=== PATIENT | female | born 1950 | race Caucasian/White ===

== ENCOUNTER 2018-08-13 07:45 | Inpatient (IN) | payer MEDICARE, OTHER ==
[2018-08-13] MEDS ORDERED: Ketorolac 30 MG/ML SDV IVPUSH ONE ×2 (09:15→14:43)
--- NOTE | 2018-08-13 09:50 | EDM.PDOC ---
ED HPI GENERAL MEDICAL PROBLEM - General Stated Complaint: PAIN Time Seen by Provider: 08/13/18 08:00 Source of Information: Reports: Patient, Family History Limitations: Reports: No Limitations - History of Present Illness INITIAL COMMENTS - FREE TEXT/NARRATIVE: c/o lower abd pain and back pain x 2d NOTE: Shopear not working for the 75 minutes of pt's ED visit, HPI and PE copied and pasted from Word document last BM 3d ago, urge to go but cannot, states she has trouble emptying her bladder as well no f/c/d, had V x 6 yesterday, little PO here, came in a w/c, usually walks without a cane or walker inc'd pain with flexion MEDS: see nursing list, reviewed, alb HFA, Combivent, Spirva ALL: Zithromax, Ancef PMH: denies CV disease, former smoker, stopped smoking last fall after a pneumonia, has 4 inhalers ROS: neg except as per HPI - Related Data Allergies Allergy/AdvReac Type Severity Reaction Status Date / Time azithromycin Allergy Rash Verified 08/13/18 14:01 [From Zithromax Z-Pritesh] cefazolin [From Ancef] Allergy Rash Verified 08/13/18 14:01 Home Meds: Home Meds Acetaminophen [Tylenol Extra Strength] 1,500 mg PO BID 08/13/18 [History] Albuterol/Ipratropium [Combivent Respimat] 1 inh INH QID PRN 08/13/18 [History] Aspirin 81 mg PO DAILY 08/13/18 [History] Calcium Carb & Citrate/Vit D3 [Calcium + D3 ER Tablet] 1 tab PO DAILY 08/13/18 [ History] Carboxymethylcellulose Sodium [Refresh Celluvisc] 1 dose EYEBOTH DAILY 08/13/18 [History] Celecoxib [CeleBREX] 200 mg PO BID 08/13/18 [History] Fexofenadine [Laura] 30 mg PO TID 08/13/18 [History] Fluticasone/Salmeterol [Advair 250-50 Diskus] 2 inh INH BID 08/13/18 [History] Nortriptyline HCl [Pamelor] 20 mg PO DAILY 08/13/18 [History] [place]-3/DHA/Epa/Fish Oil [[facility] [place] 3 500 Softgel] 1 cap PO DAILY 08/13/18 [History] Simvastatin 20 mg PO DAILY 08/13/18 [History] Tiotropium [Spiriva HandiHaler] 1 inh INH DAILY 08/13/18 [History] Vit A/Vit C/Vit E/Zinc/Copper [Preservision] 1 tab PO DAILY 08/13/18 [History] cycloSPORINE [Restasis] 1 each EYEBOTH DAILY 08/13/18 [History] ED ROS GENERAL - Review of Systems Review Of Systems: See Below Constitutional: Reports: No Symptoms. Denies: Fever HEENT: Reports: No Symptoms Respiratory: Reports: No Symptoms Cardiovascular: Reports: No Symptoms. Denies: Chest Pain Endocrine: Reports: No Symptoms GI/Abdominal: Reports: Abdominal Pain, Constipation, Nausea, Vomiting : Reports: No Symptoms Musculoskeletal: Reports: No Symptoms Skin: Reports: No Symptoms Neurological: Reports: No Symptoms Psychiatric: Reports: No Symptoms Hematologic/Lymphatic: Reports: No Symptoms Immunologic: Reports: No Symptoms ED EXAM, GENERAL - Physical Exam Exam: See Below Free Text/Narrative:: BP 104/55, HR 114 initial, then 80, RR 20, temp 98.3, PO 97%, alert, pleasant, none ill, lying supine, HEENT neg, neck supple no LNs, CV RRR, 2/6 JACQUES at LSB, quiet precordium, no tachy, chest NT, pul fair AE with scattered insp/exp wheezing, abd mild distention, good BS x 4, no dull flanks, no HSM, mild nonspecific tender across lower abd, no guard, no rebound, not localized, back no CVAT, no spine tender, no SI tender, no iliac crest tender, no spasm. Sits with some difficulty, pulls up on guardrail, wince a little. Ext no edema, mild dec'd turgor x 4. Exam Limited By: No Limitations General Appearance: Alert, WD/WN, No Apparent Distress Course - Vital Signs Last Recorded V/S: Last Vital Signs Temp 36.8 C 08/13/18 11:22 Pulse 87 08/13/18 11:22 Resp 18 08/13/18 11:22 BP 146/85 H 08/13/18 11:22 Pulse Ox 97 08/13/18 11:22 - Orders/Labs/Meds Orders: Active Orders 24 hr Category Date Time Status Abdomen 2V AP Flat Upright [CR] Stat Exams 08/13/18 09:21 Taken Abdomen Pelvis w Cont [CT] Stat Exams 08/13/18 09:57 Taken Diatrizoate [place]/Diatrizoate Na [Gastrografin 37%] Med 08/13/18 10:45 Active 30 ml PO . DIRECTED Medication Orders Diatrizoate Meglum/Diatrizoate Sod (Gastrografin 37%) 30 ml PO . DIRECTED KELLEY Last Admin: 08/13/18 11:56 Dose: 30 ml Labs: Laboratory Tests 08/13/18 08/13/18 08/13/18 Range/Units 09:05 09:05 09:05 WBC 12.4 H (4.5-12.0) X10-3/uL RBC 2.46 L (3.23-5.20) x10(6)uL Hgb 8.1 L (11.5-15.5) g/dL Hct 23.7 L (30.0-51.3) % MCV 96.3 H (80-96) fL MCH 33.0 (27.7-33.6) pg MCHC 34.3 (32.2-35.4) g/dL RDW 12.0 (11.5-15.5) % Plt Count 189 (125-369) X10(3)uL MPV 10.2 (7.4-10.4) fL Neut % (Auto) 41.9 L (46-82) % Lymph % (Auto) 51.9 H (13-37) % [place] % (Auto) 5.6 (4-12) % Eos % (Auto) 0 L (1.0-5.0) % Baso % (Auto) 1 (0-2) % Neut # (Auto) 5.2 (1.6-8.3) # Lymph # (Auto) 6.4 H (0.6-5.0) # [place] # (Auto) 0.7 (0.0-1.3) # Eos # (Auto) 0.0 (0.0-0.8) # Baso # (Auto) 0.1 (0.0-0.2) # Sodium 133 L (135-145) mmol/L Potassium 3.8 (3.5-5.3) mmol/L Chloride 98 L (100-110) mmol/L Carbon Dioxide 25 (21-32) mmol/L BUN 20 H (7-18) mg/dL Creatinine 1.0 (0.55-1.02) mg/dL Est Cr Clr Drug Dosing TNP Estimated GFR (MDRD) 55 L (>60) BUN/Creatinine Ratio 20.0 (9-20) Glucose 121 H (80-116) mg/dL Calcium 9.1 (8.6-10.2) mg/dL Total Bilirubin 0.4 (0.1-1.3) mg/dL AST 13 (5-25) IU/L ALT 14 (12-36) U/L Alkaline Phosphatase 55 L (56-112) IU/L C-Reactive Protein 17.4 H* (0.5-0.9) mg/dL Total Protein 6.7 (6.0-8.0) g/dL Albumin 2.5 L (3.2-4.6) g/dL Globulin 4.2 g/dL Albumin/Globulin Ratio 0.6 Urine Color (YELLOW) Urine Appearance (CLEAR) Urine pH (5.0-6.5) Ur Specific [place] (1.010-1.025) Urine Protein (NEGATIVE) mg/dL Urine Glucose (UA) (NEGATIVE) mg/dL Urine Ketones (NEGATIVE) mg/dL Urine Occult Blood (NEGATIVE) Urine Nitrite (NEGATIVE) Urine Bilirubin (NEGATIVE) Urine Urobilinogen (NEGATIVE) mg/dL Ur Leukocyte Esterase (NEGATIVE) Urine RBC (0) Urine WBC (0) Ur Squamous Epith Cells (NS,R,O) Urine Bacteria (NS) 08/13/18 Range/Units 10:00 WBC (4.5-12.0) X10-3/uL RBC (3.23-5.20) x10(6)uL Hgb (11.5-15.5) g/dL Hct (30.0-51.3) % MCV (80-96) fL MCH (27.7-33.6) pg MCHC (32.2-35.4) g/dL RDW (11.5-15.5) % Plt Count (125-369) X10(3)uL MPV (7.4-10.4) fL Neut % (Auto) (46-82) % Lymph % (Auto) (13-37) % [place] % (Auto) (4-12) % Eos % (Auto) (1.0-5.0) % Baso % (Auto) (0-2) % Neut # (Auto) (1.6-8.3) # Lymph # (Auto) (0.6-5.0) # [place] # (Auto) (0.0-1.3) # Eos # (Auto) (0.0-0.8) # Baso # (Auto) (0.0-0.2) # Sodium (135-145) mmol/L Potassium (3.5-5.3) mmol/L Chloride (100-110) mmol/L Carbon Dioxide (21-32) mmol/L BUN (7-18) mg/dL Creatinine (0.55-1.02) mg/dL Est Cr Clr Drug Dosing Estimated GFR (MDRD) (>60) BUN/Creatinine Ratio (9-20) Glucose (80-116) mg/dL Calcium (8.6-10.2) mg/dL Total Bilirubin (0.1-1.3) mg/dL AST (5-25) IU/L ALT (12-36) U/L Alkaline Phosphatase (56-112) IU/L C-Reactive Protein (0.5-0.9) mg/dL Total Protein (6.0-8.0) g/dL Albumin (3.2-4.6) g/dL Globulin g/dL Albumin/Globulin Ratio Urine Color Yellow (YELLOW) Urine Appearance Cloudy (CLEAR) Urine pH 5.0 (5.0-6.5) Ur Specific [place] 1.025 (1.010-1.025) Urine Protein Trace (NEGATIVE) mg/dL Urine Glucose (UA) Normal (NEGATIVE) mg/dL Urine Ketones 15 H (NEGATIVE) mg/dL Urine Occult Blood Moderate H (NEGATIVE) Urine Nitrite Negative (NEGATIVE) Urine Bilirubin Negative (NEGATIVE) Urine Urobilinogen Normal (NEGATIVE) mg/dL Ur Leukocyte Esterase Negative (NEGATIVE) Urine RBC 5-10 (0) Urine WBC 5-10 (0) Ur Squamous Epith Cells Moderate H (NS,R,O) Urine Bacteria Many H (NS) Meds: Medications Generic Name Dose Route Start Last Admin Trade Name Freq PRN Reason Stop Dose Admin Diatrizoate Meglum/Diatrizoate Sod 30 ml 08/13/18 10:45 08/13/18 11:56 Gastrografin 37% PO 30 ml . DIRECTED KELLEY Administration Discontinued Medications Generic Name Dose Route Start Last Admin Trade Name Jesus PRN Reason Stop Dose Admin Ciprofloxacin/Dextrose 400 mg/ 200 mls @ 200 mls/hr 08/13/18 09:59 08/13/18 12:33 Premix IV 08/13/18 10:58 200 mls/hr ONETIME ONE Administration Metronidazole 500 mg/ Premix 100 mls @ 100 mls/hr 08/13/18 09:59 08/13/18 11: 36 IV 08/13/18 10:58 100 mls/hr ONETIME ONE Administration Ciprofloxacin/Dextrose 400 mg/ 200 mls @ 200 mls/hr 08/13/18 10:49 08/13/18 10:52 Premix IV 08/13/18 11:48 Not Given ONETIME ONE Iopamidol 67 ml 08/13/18 10:34 08/13/18 11:56 Isovue-370 (76%) IV 08/13/18 10:35 67 ml ONETIME ONE Administration - Re-Assessments/Exams Free Text/Narrative Re-Assessment/Exam: 08/13/18 10:00 KUB 2v with stool throughout colon, no AFL, perhaps slight thickening of wall of small bowel WBC 12k, CRP 17, no fever h/o SCOT/BSO, only abd surgery will obtain CT abd/pelvis with IV and oral contrast will give cipro and Flagyl pending CT results CMP and u/a pending 08/13/18 11:49 repeat temp 97.8, pt just left for CT 08/13/18 14:[address] report shows questionable thickening of rectum, in talking directly with radiologist pt noted to have a 15 cm appendix with wall thickening and appendiceal at the tip, radiologist dx'ed acute appendicitis which is c/w with hx and PE and labs pt has declined pain meds here, had minimal discomfort onset 2d ago, inc'd discomfort today Dr Cardona notified, he requested surgery at 3 PM, pt and agree 08/13/18 14:04 pt received 1 liter NS, will give her a 2nd liter preop, poor PO intake in past 2d, urine mildly concentrated Departure - Departure Time of Disposition: 14:34 Disposition: Admitted As Inpatient 66 Condition: Fair Clinical Impression: Acute appendicitis - Discharge Information *PRESCRIPTION DRUG MONITORING PROGRAM REVIEWED*: Not Applicable *COPY OF PRESCRIPTION DRUG MONITORING REPORT IN PATIENT [place]OD[place]: Not Applicable Referrals: Kira Cuevas NP [Primary Care Provider] - - My Orders Last 24 Hours: My Active Orders 08/13/18 09:21 Abdomen 2V AP Flat Upright [CR] Stat 08/13/18 09:57 Abdomen Pelvis w Cont [CT] Stat 08/13/18 10:45 Diatrizoate [place]/Diatrizoate Na [Gastrografin 37%] 30 ml PO . DIRECTED - Assessment/Plan Last 24 Hours: My Active Orders 08/13/18 09:21 Abdomen 2V AP Flat Upright [CR] Stat 08/13/18 09:57 Abdomen Pelvis w Cont [CT] Stat 08/13/18 10:45 Diatrizoate [place]/Diatrizoate Na [Gastrografin 37%] 30 ml PO . DIRECTED
[2018-08-13] MEDS ORDERED: Ciprofloxacin in D5W 400 MG in Premix Bag 1 BAG IV ONE ×4 (09:59→10:49)
[2018-08-13] MEDS ORDERED: metroNIDAZOLE/Normal Saline 500 MG in Premix Bag 1 BAG IV ONE (09:59)
[2018-08-13] MEDS ORDERED: Iopamidol 755 Mg/ML 75 ML Bottle IV ONE (10:34)
[2018-08-13] MEDS ORDERED: Diatrizoate Meglumine/Diatrizoate Sodium 37% 30 ML Bottle PO SCH (10:45)
[2018-08-13] MEDS ORDERED: Sodium Chloride 0.9% 1,000 ML IV ONE (14:04)
[2018-08-13] MEDS ORDERED: Neostigmine Methylsulfate 10 MG/10 ML MDV IVPUSH ONE (14:43)
[2018-08-13] MEDS ORDERED: fentaNYL 100 MCG/2 ML SDV IV ONE (14:43)
[2018-08-13] MEDS ORDERED: Lactated Ringers 1,000 ML IV ONE (14:43)
[2018-08-13] MEDS ORDERED: Rocuronium 100 MG/10 ML MDV IV ONE (14:43)
[2018-08-13] MEDS ORDERED: Sugammadex Sodium 200 MG/2 ML VIAL IV ONE (14:43)
[2018-08-13] MEDS ORDERED: Ondansetron 4 MG/2 ML SDV IVPUSH ONE (14:43)
[2018-08-13] MEDS ORDERED: Propofol 200 MG/20 ML SDV IV ONE (14:43)
[2018-08-13] MEDS ORDERED: Midazolam 1 MG/ML 2 ML SDV IV ONE (14:43)
[2018-08-13] MEDS ORDERED: Succinylcholine 200 MG/10 ML MDV IV ONE (14:43)
[2018-08-13] MEDS ORDERED: Citric Acid/Sodium Citrate Solution 30 ML Cup PO ONE (14:43)
[2018-08-13] MEDS ORDERED: ePHEDrine 50 MG/ML SDV IV ONE (14:43)
[2018-08-13] MEDS ORDERED: Dexamethasone 4 MG/ML 5 ML MDV IVPUSH ONE (14:43)
[2018-08-13] MEDS ORDERED: Glycopyrrolate 0.2 MG/ML 5 ML MDV IV ONE (14:43)
[2018-08-13] MEDS ORDERED: Albuterol 8 GM Inhaler INH ONE (14:43)
[2018-08-13] MEDS ORDERED: diphenhydrAMINE 50 MG/ML SDV IVPUSH ONE (14:43)
--- NOTE | 2018-08-13 14:57 | PCM.HP ---
H&P History of Present Illness - General Date of Service: 08/13/18 Source of Information: Patient History Limitations: Reports: No Limitations - History of Present Illness Onset of Symptoms: Reports: Gradual Symptom Onset Date: 08/11/18 Duration of Symptoms: Reports: Day(s): (3) Location: Reports: Abdomen (Lower adbomen) Quality: Reports: Pressure, Sharp Severity: Moderate Worsens with: Reports: Movement Associated Symptoms: Denies: Fever/Chills, Nausea/Vomiting (some naausea yesterday) - Related Data Allergies/Adverse Reactions: Allergies Allergy/AdvReac Type Severity Reaction Status Date / Time azithromycin Allergy Rash Verified 08/13/18 14:01 [From Zithromax Z-Pritesh] cefazolin [From Ancef] Allergy Rash Verified 08/13/18 14:01 Home Medications: Home Meds Acetaminophen [Tylenol Extra Strength] 1,500 mg PO BID 08/13/18 [History] Albuterol/Ipratropium [Combivent Respimat] 1 inh INH QID PRN 08/13/18 [History] Aspirin 81 mg PO DAILY 08/13/18 [History] Calcium Carb & Citrate/Vit D3 [Calcium + D3 ER Tablet] 1 tab PO DAILY 08/13/18 [ History] Carboxymethylcellulose Sodium [Refresh Celluvisc] 1 dose EYEBOTH DAILY 08/13/18 [History] Celecoxib [CeleBREX] 200 mg PO BID 08/13/18 [History] Fexofenadine [Laura] 30 mg PO TID 08/13/18 [History] Fluticasone/Salmeterol [Advair 250-50 Diskus] 2 inh INH BID 08/13/18 [History] Nortriptyline HCl [Pamelor] 20 mg PO DAILY 08/13/18 [History] [place]-3/DHA/Epa/Fish Oil [[place] 3 500 Softgel] 1 cap PO DAILY 08/13/18 [History] Simvastatin 20 mg PO DAILY 08/13/18 [History] Tiotropium [Spiriva HandiHaler] 1 inh INH DAILY 08/13/18 [History] Vit A/Vit C/Vit E/Zinc/Copper [Preservision] 1 tab PO DAILY 08/13/18 [History] cycloSPORINE [Restasis] 1 each EYEBOTH DAILY 08/13/18 [History] Past Medical History HEENT History: Reports: Impaired Vision Cardiovascular History: Reports: High Cholesterol, Hypertension Respiratory History: Reports: Asthma, COPD [employer] History: Reports: Social & Family History - Family History Family Medical History: Noncontributory - Tobacco Use Smoking Status *Q: Never Smoker Second Hand Smoke Exposure: No - Caffeine Use Caffeine Use: Reports: Coffee - Recreational Drug Use Recreational Drug Use: No H&P Review of Systems - Review of Systems: Review Of Systems: See Below General: Reports: No Symptoms Pulmonary: Reports: No Symptoms Cardiovascular: Reports: No Symptoms Gastrointestinal: Reports: Abdominal Pain Genitourinary: Reports: No Symptoms Exam - Exam Exam: See Below - Vital Signs Vital Signs: Last Vital Signs Temp 98.3 F 08/13/18 11:22 Pulse 87 08/13/18 11:22 Resp 18 08/13/18 11:22 BP 146/85 H 08/13/18 11:22 Pulse Ox 97 08/13/18 11:22 - Exam General: Alert, Oriented Lungs: Clear to Auscultation, Normal Respiratory Effort Cardiovascular: Regular Rate, Regular Rhythm GI/Abdominal Exam: Soft, Tender (lower abdomen, right more than left) - Patient Data Lab Results Last 24 hrs: Laboratory Results - last 24 hr 08/13/18 08/13/18 08/13/18 Range/Units 09:05 09:05 09:05 WBC 12.4 H (4.5-12.0) X10-3/uL RBC 2.46 L (3.23-5.20) x10(6)uL Hgb 8.1 L (11.5-15.5) g/dL Hct 23.7 L (30.0-51.3) % MCV 96.3 H (80-96) fL MCH 33.0 (27.7-33.6) pg MCHC 34.3 (32.2-35.4) g/dL RDW 12.0 (11.5-15.5) % Plt Count 189 (125-369) X10(3)uL MPV 10.2 (7.4-10.4) fL Neut % (Auto) 41.9 L (46-82) % Lymph % (Auto) 51.9 H (13-37) % [place] % (Auto) 5.6 (4-12) % Eos % (Auto) 0 L (1.0-5.0) % Baso % (Auto) 1 (0-2) % Neut # (Auto) 5.2 (1.6-8.3) # Lymph # (Auto) 6.4 H (0.6-5.0) # [place] # (Auto) 0.7 (0.0-1.3) # Eos # (Auto) 0.0 (0.0-0.8) # Baso # (Auto) 0.1 (0.0-0.2) # Sodium 133 L (135-145) mmol/L Potassium 3.8 (3.5-5.3) mmol/L Chloride 98 L (100-110) mmol/L Carbon Dioxide 25 (21-32) mmol/L BUN 20 H (7-18) mg/dL Creatinine 1.0 (0.55-1.02) mg/dL Est Cr Clr Drug Dosing TNP Estimated GFR (MDRD) 55 L (>60) BUN/Creatinine Ratio 20.0 (9-20) Glucose 121 H (80-116) mg/dL Calcium 9.1 (8.6-10.2) mg/dL Total Bilirubin 0.4 (0.1-1.3) mg/dL AST 13 (5-25) IU/L ALT 14 (12-36) U/L Alkaline Phosphatase 55 L (56-112) IU/L C-Reactive Protein 17.4 H* (0.5-0.9) mg/dL Total Protein 6.7 (6.0-8.0) g/dL Albumin 2.5 L (3.2-4.6) g/dL Globulin 4.2 g/dL Albumin/Globulin Ratio 0.6 Urine Color (YELLOW) Urine Appearance (CLEAR) Urine pH (5.0-6.5) Ur Specific [place] (1.010-1.025) Urine Protein (NEGATIVE) mg/dL Urine Glucose (UA) (NEGATIVE) mg/dL Urine Ketones (NEGATIVE) mg/dL Urine Occult Blood (NEGATIVE) Urine Nitrite (NEGATIVE) Urine Bilirubin (NEGATIVE) Urine Urobilinogen (NEGATIVE) mg/dL Ur Leukocyte Esterase (NEGATIVE) Urine RBC (0) Urine WBC (0) Ur Squamous Epith Cells (NS,R,O) Urine Bacteria (NS) 03/03/19 Range/Units 10:00 WBC (4.5-12.0) X10-3/uL RBC (3.23-5.20) x10(6)uL Hgb (11.5-15.5) g/dL Hct (30.0-51.3) % MCV (80-96) fL MCH (27.7-33.6) pg MCHC (32.2-35.4) g/dL RDW (11.5-15.5) % Plt Count (125-369) X10(3)uL MPV (7.4-10.4) fL Neut % (Auto) (46-82) % Lymph % (Auto) (13-37) % [place] % (Auto) (4-12) % Eos % (Auto) (1.0-5.0) % Baso % (Auto) (0-2) % Neut # (Auto) (1.6-8.3) # Lymph # (Auto) (0.6-5.0) # [place] # (Auto) (0.0-1.3) # Eos # (Auto) (0.0-0.8) # Baso # (Auto) (0.0-0.2) # Sodium (135-145) mmol/L Potassium (3.5-5.3) mmol/L Chloride (100-110) mmol/L Carbon Dioxide (21-32) mmol/L BUN (7-18) mg/dL Creatinine (0.55-1.02) mg/dL Est Cr Clr Drug Dosing Estimated GFR (MDRD) (>60) BUN/Creatinine Ratio (9-20) Glucose (80-116) mg/dL Calcium (8.6-10.2) mg/dL Total Bilirubin (0.1-1.3) mg/dL AST (5-25) IU/L ALT (12-36) U/L Alkaline Phosphatase (56-112) IU/L C-Reactive Protein (0.5-0.9) mg/dL Total Protein (6.0-8.0) g/dL Albumin (3.2-4.6) g/dL Globulin g/dL Albumin/Globulin Ratio Urine Color Yellow (YELLOW) Urine Appearance Cloudy (CLEAR) Urine pH 5.0 (5.0-6.5) Ur Specific [place] 1.025 (1.010-1.025) Urine Protein Trace (NEGATIVE) mg/dL Urine Glucose (UA) Normal (NEGATIVE) mg/dL Urine Ketones 15 H (NEGATIVE) mg/dL Urine Occult Blood Moderate H (NEGATIVE) Urine Nitrite Negative (NEGATIVE) Urine Bilirubin Negative (NEGATIVE) Urine Urobilinogen Normal (NEGATIVE) mg/dL Ur Leukocyte Esterase Negative (NEGATIVE) Urine RBC 5-10 (0) Urine WBC 5-10 (0) Ur Squamous Epith Cells Moderate H (NS,R,O) Urine Bacteria Many H (NS) Result Diagrams: 08/13/18 09:05 08/13/18 09:05 Imaging Impressions Last 24 hrs: CT shows acute appendicitis Problem List Initiated/Reviewed/Updated: Yes Orders Last 24hrs: Active Orders 24 hr Category Date Time Status Abdomen 2V AP Flat Upright [CR] Stat Exams 08/13/18 09:21 Taken Abdomen Pelvis w Cont [CT] Stat Exams 08/13/18 09:57 Taken CULTURE URINE [RM] Stat Lab 08/13/18 10:05 Received Diatrizoate [place]/Diatrizoate Na [Gastrografin 37%] Med 08/13/18 10:45 Active 30 ml PO . DIRECTED Sodium Chloride 0.9% [Normal Saline] 1,000 ml Med 08/13/18 14:04 Active IV .BOLUS Medication Orders Diatrizoate Meglum/Diatrizoate Sod (Gastrografin 37%) 30 ml PO . DIRECTED [facility] Last Admin: 08/13/18 11:56 Dose: 30 ml Sodium Chloride (Normal Saline) 1,000 mls @ 999 mls/hr IV .BOLUS ONE Stop: 08/13/18 15:04 Last Admin: 08/13/18 14:20 Dose: 999 mls/hr Assessment/Plan Comment:: Will proceed with lap appy. Risks and complications of bleeding, infection, anesth, bowel injury, and need to open were discussed, consent obtained
[2018-08-13] MEDS ORDERED: Albuterol/Ipratropium 3.0-0.5 MG/3 ML Neb Soln NEB ONE (15:02)
--- NOTE | 2018-08-13 16:51 | PCM.OPNOTE ---
- General Post-Op/Procedure Note Date of Surgery/Procedure: 08/13/18 Operative Procedure(s): Lap Appy Findings: Acute Perforated Appendicitis Pre Op Diagnosis: Acute Appendicitis Post-Op Diagnosis: Same, perforated Anesthesia Technique: General ET Tube Primary Surgeon: Karthik Cardona Anesthesia Provider: Cristiane Lam Pathology: Appendix and Cultures EBL in mLs: 5 Complications: None Condition: Stable
[2018-08-13] MEDS ORDERED: Morphine 2 MG/ML Syringe IVPUSH PRN (16:54)
[2018-08-13] MEDS: Lactated Ringers 1,000 ML IV SCH (17:44)
[2018-08-13] MEDS ORDERED: Piperacillin/Tazobactam 3.375 GM in Sodium Chloride 0.9% 50 ML IV ONE (18:00)
--- NOTE | 2018-08-13 23:34 | OR ---
DATE OF OPERATION: 08/13/2018 SURGEON: Karthik Cardona MD PREOPERATIVE DIAGNOSIS: Acute appendicitis. POSTOPERATIVE DIAGNOSIS: Acute appendicitis, perforated. PROCEDURE: Laparoscopic appendectomy. ANESTHESIA: General. DESCRIPTION OF PROCEDURE: The patient was brought to the operating room, where general endotracheal anesthesia was administered. The abdomen was prepped with ChloraPrep and draped sterilely. An infraumbilical incision was made and extended into the peritoneal cavity without difficulty. The Kasey cannulator was introduced and pneumoperitoneum obtained. The patient was placed in Trendelenburg position and rotated to the left. Two 5 mm ports were placed above the pubis and mcc between the umbilicus and pubis. There was some purulent drainage along the right gutter. As I began to mobilize structures in the right lower quadrant, an acutely inflamed appendix was identified. It was perforated at its distal 3rd and had necrotic tissue and small pieces of stool present in the right pelvis. The small pieces of stool and purulent drainage were suctioned. The appendix was friable, so I decided to transect this at the base of the cecum with an Endo-PHILLIP 3.5 mm stapler. The mesoappendix was taken down with 2 applications of the Endo-PHILLIP 2.5 mm stapler. At the level of perforation, the appendix and this was removed as the first specimen. I continued to dissect further along the right pelvis and the tip of the appendix was adhesed in the pelvis with a single strand of adhesion. This was sharply transected. I was then able to mobilize the distal 3rd of the appendix and transect this with another application of the Endo-PHILLIP 2.5 mm stapler. This was also removed through an Endo pouch. The dissection continued along the appendix. She has had a total hysterectomy, so no adnexal structures were present. The right lower quadrant was thoroughly irrigated and return was clear and hemostasis assured. I then placed the patient in reverse Trendelenburg position as there was a lot of cloudy fluid in the right upper quadrant along the liver. A total of 1.5 L of irrigation was used to irrigate. Once all the return was clear, ports were removed under direct vision and remained hemostatic. Umbilical fascia was closed with [id number] #0 Vicryl. Skin was closed with #4-0 Vicryl subcuticular sutures. Benzoin and Steri-Strips were placed, and Band-Aids applied. The patient tolerated the procedure well. Estimated blood loss 5 mL. She returned to postanesthesia in stable condition. /[id number] NELLY/QUINTON
[2018-08-13] MEDS: Piperacillin/Tazobactam 3.375 GM in Sodium Chloride 0.9% 50 ML IV SCH (23:38)
[2018-08-14] MEDS: Piperacillin/Tazobactam 3.375 GM in Sodium Chloride 0.9% 50 ML IV SCH ×5 (01:30→18:11)
[2018-08-14] MEDS: Lactated Ringers 1,000 ML IV SCH ×2 (02:36→17:58)
[2018-08-14] MEDS: Acetaminophen/HYDROcodone 325-5 MG Tab PO PRN ×2 (08:44→18:14)
--- NOTE | 2018-08-14 19:35 | PCM.SURGPN ---
- General Info Date of Service: 08/14/18 POD#: 1 Functional Status: Reports: Pain Controlled, Tolerating Diet, Ambulating, Urinating, Incentive Spirometry - Review of Systems General: Reports: No Symptoms Pulmonary: Reports: No Symptoms Gastrointestinal: Reports: No Symptoms, Abdominal Pain (mild). Denies: Flatus - Patient Data Vitals - Most Recent: Last Vital Signs Temp 98.4 F 08/14/18 11:25 Pulse 78 08/14/18 11:25 Resp 20 08/14/18 11:25 BP 100/50 L 08/14/18 11:25 Pulse Ox 92 L 08/14/18 11:25 Weight - Most Recent: 59.874 kg I&O - Last 24 Hours: Intake & Output 08/14/18 08/14/18 08/14/18 06:59 14:59 22:59 Intake Total 1254 70 2060 Output Total 1200 550 Balance 54 -480 2060 Alexi Results Last 24 Hrs: Microbiology 08/13/18 16:15 Gram Stain - Final Appendix Routine Culture - Preliminary 08/13/18 10:05 Urine Culture - Preliminary Urine, Clean Catch Gram Negative Rods Med Orders - Current: Current Medications Hydrocodone Bitart/Acetaminophen ([place] 325-5 Mg) 1 tab PO Q4H PRN PRN Reason: Pain (mild 1-3) Last Admin: 08/14/18 18:14 Dose: 1 tab Diatrizoate Meglum/Diatrizoate Sod (Gastrografin 37%) 30 ml PO . DIRECTED [facility] Last Admin: 08/13/18 11:56 Dose: 30 ml Piperacillin Sod/Tazobactam (Sod 3.375 gm/ Sodium Chloride) 50 mls @ 100 mls/ hr IV Q6H [facility] Last Admin: 08/14/18 18:11 Dose: 100 mls/hr Lactated Ringer's (Ringers, Lactated) 1,000 mls @ 50 mls/hr IV ASDIRECTED [facility] Last Admin: 08/14/18 17:58 Dose: 50 mls/hr Morphine Sulfate (Morphine) 2 mg IVPUSH Q1H PRN PRN Reason: Pain (severe 7-10) Discontinued Medications Albuterol/Ipratropium (Duoneb 3.0-0.5 Mg/3 Ml) 3 ml NEB ONETIME ONE Stop: 08/13/18 15:03 Last Admin: 08/13/18 15:15 Dose: 3 ml Ciprofloxacin/Dextrose 400 mg/ (Premix) 200 mls @ 200 mls/hr IV ONETIME ONE Stop: 08/13/18 10:58 Last Admin: 08/13/18 12:33 Dose: 200 mls/hr Metronidazole 500 mg/ Premix 100 mls @ 100 mls/hr IV ONETIME ONE Stop: 08/13/18 10:58 Last Admin: 08/13/18 11:36 Dose: 100 mls/hr Ciprofloxacin/Dextrose 400 mg/ (Premix) 200 mls @ 200 mls/hr IV ONETIME ONE Stop: 08/13/18 11:48 Last Admin: 08/13/18 10:52 Dose: Not Given Sodium Chloride (Normal Saline) 1,000 mls @ 999 mls/hr IV .BOLUS ONE Stop: 08/13/18 15:04 Last Admin: 08/13/18 14:20 Dose: 999 mls/hr Lactated Ringer's (Ringers, Lactated) 1,000 mls @ 125 mls/hr IV ASDIRECTED [facility] Last Admin: 08/14/18 02:36 Dose: 125 mls/hr Piperacillin Sod/Tazobactam (Sod 3.375 gm/ Sodium Chloride) 50 mls @ 100 mls/ hr IV ONETIME ONE Stop: 08/13/18 18:29 Last Admin: 08/13/18 18:14 Dose: 100 mls/hr Iopamidol (Isovue-370 (76%)) 67 ml IV ONETIME ONE Stop: 08/13/18 10:35 Last Admin: 08/13/18 11:56 Dose: 67 ml - Exam Wound/Incisions: Healing Well General: Alert, Oriented Lungs: Clear to Auscultation GI/Abdominal Exam: Soft, Tender (mild lower) - Problem List Review Problem List Initiated/Reviewed/Updated: Yes - My Orders Last 24 Hours: Active Orders 24 hr Category Date Time Status Admission Status [Patient Status] [ADT] Routine ADT 08/14/18 10:21 Active CBC W/O DIFF,HEMOGRAM [HEME] Routine Lab 08/15/18 16:54 Ordered Lactated Ringers [Ringers, Lactated] 1,000 ml Med 08/14/18 08:00 Active IV ASDIRECTED Piperacillin/Tazobactam [Zosyn] 3.375 gm Med 08/14/18 00:00 Active Sodium Chloride 0.9% [Normal Saline] 50 ml IV Q6H Medication Orders Hydrocodone Bitart/Acetaminophen ([place] 325-5 Mg) 1 tab PO Q4H PRN PRN Reason: Pain (mild 1-3) Last Admin: 08/14/18 18:14 Dose: 1 tab Admin: 08/14/18 08:44 Dose: 1 tab Diatrizoate Meglum/Diatrizoate Sod (Gastrografin 37%) 30 ml PO . DIRECTED [facility] Last Admin: 08/13/18 11:56 Dose: 30 ml Piperacillin Sod/Tazobactam (Sod 3.375 gm/ Sodium Chloride) 50 mls @ 100 mls/ hr IV Q6H [facility] Last Admin: 08/14/18 18:11 Dose: 100 mls/hr Admin: 08/14/18 12:25 Dose: 100 mls/hr Admin: 08/14/18 05:34 Dose: Not Given Admin: 08/14/18 05:26 Dose: 100 mls/hr Admin: 08/14/18 01:30 Dose: Not Given Admin: 08/13/18 23:38 Dose: 100 mls/hr Lactated Ringer's (Ringers, Lactated) 1,000 mls @ 50 mls/hr IV ASDIRECTED [facility] Last Admin: 08/14/18 17:58 Dose: 50 mls/hr Morphine Sulfate (Morphine) 2 mg IVPUSH Q1H PRN PRN Reason: Pain (severe 7-10) - Assessment Assessment (Free Text/Narrative):: Doing well POD #1 - Plan Plan (Free Text/Narrative):: Cont as is
[2018-08-14] MEDS ORDERED: Pantoprazole 40 MG Tab.CR PO ONE (21:30)
[2018-08-15] MEDS: Piperacillin/Tazobactam 3.375 GM in Sodium Chloride 0.9% 50 ML IV SCH ×5 (06:07→18:50)
--- NOTE | 2018-08-15 08:58 | CR ---
INDICATION: Abdominal pain, no BM times 3 days. ABDOMEN: Four images of the abdomen with supine and upright projections were obtained 08/13/18 - no comparison x-ray of the abdomen with a CT of 08/13/18 noted. Again noted is a renal calculus in the area of the left renal pelvis measuring 9.4 mm. A dextroconcave rotoscoliosis of the lower lumbar spine is noted. Degenerative disk disease is suggested at L4-5, L5-S1, and L3-4. The pattern of gas and feces is nonspecific without evidence of free air or obstruction. Relatively minimal amount of stool is noted - findings do no suggest significant constipation by x-ray. No mass lesions or organomegaly could be identified. Phleboliths are noted in the pelvis, mostly on the right. IMPRESSION: 1. Nonacute abdomen. 2. Left renal calculus. 3. Rotoscoliosis lower lumbar spine with degenerative changes and disk disease in that area. [facility]
[2018-08-15] MEDS ORDERED: FEXOFENADINE 30 MG PO SCH (09:00)
[2018-08-15] MEDS ORDERED: Acetaminophen 500 MG Tab PO SCH (09:00)
[2018-08-15] MEDS ORDERED: Celecoxib 200 MG Cap PO SCH (09:00)
[2018-08-15] MEDS ORDERED: Simvastatin 20 MG Tab PO SCH (09:00)
[2018-08-15] MEDS: Tiotropium Inhaler 18 MCG Inhalation Powder Cap Kit of 5 INH SCH (09:17)
[2018-08-15] MEDS: Acetaminophen/HYDROcodone 325-5 MG Tab PO PRN (10:43)
[2018-08-15] MEDS ORDERED: Albuterol/Ipratropium 3.0-0.5 MG/3 ML Neb Soln INH PRN (12:00)
--- NOTE | 2018-08-15 12:38 | PCM.SURGPN ---
- General Info Date of Service: 08/15/18 POD#: 2 Functional Status: Reports: Pain Controlled (requiring Norno), Tolerating Diet, Ambulating, Urinating - Review of Systems General: Reports: No Symptoms. Denies: Fever Pulmonary: Reports: No Symptoms Gastrointestinal: Reports: Abdominal Pain (about the same). Denies: Flatus - Patient Data Vitals - Most Recent: Last Vital Signs Temp 97.7 F 08/15/18 00:00 Pulse 110 H 08/15/18 00:00 Resp 24 H 08/15/18 00:00 BP 118/70 08/15/18 00:00 Pulse Ox 97 08/15/18 00:00 Weight - Most Recent: 59.874 kg I&O - Last 24 Hours: Intake & Output 08/14/18 08/15/18 08/15/18 22:59 06:59 14:59 Intake Total 2379 1055 Output Total 300 940 Balance 2079 115 Lab Results Last 24 Hrs: Laboratory Results - last 24 hr 08/15/18 Range/Units 06:35 WBC 10.6 (4.5-12.0) X10-3/uL RBC 3.73 (3.23-5.20) x10(6)uL Hgb 9.7 L (11.5-15.5) g/dL Hct 29.6 L (30.0-51.3) % MCV 79.3 L (80-96) fL MCH 26.0 L (27.7-33.6) pg MCHC 32.8 (32.2-35.4) g/dL RDW 17.6 H (11.5-15.5) % Plt Count 233 (125-369) X10(3)uL Alexi Results Last 24 Hrs: Microbiology 08/13/18 10:05 Urine Culture - Final Urine, Clean Catch Escherichia Coli 08/13/18 16:15 Gram Stain - Final Appendix Routine Culture - Preliminary Med Orders - Current: Current Medications Acetaminophen (Tylenol Extra Strength) 1,500 mg PO BID [facility] Hydrocodone Bitart/Acetaminophen ([place] 325-5 Mg) 1 tab PO Q4H PRN PRN Reason: Pain (mild 1-3) Last Admin: 08/15/18 10:43 Dose: 1 tab Artificial Tears (Refresh Tears 0.5%) 0 ml EYEBOTH QID PRN PRN Reason: DRY EYES Atorvastatin Calcium (Lipitor) 20 mg PO BEDTIME [facility] Calcium Carbonate (Calcium Carbonate/Vitamin D 1250 Mg-200 Unit) 1 tab PO BID [facility] Celecoxib (Celebrex) 200 mg PO BID [facility] Last Admin: 08/15/18 09:17 Dose: 200 mg Cyclosporine (Restasis) 1 each EYEBOTH BID [facility] Diatrizoate Meglum/Diatrizoate Sod (Gastrografin 37%) 30 ml PO . DIRECTED [facility] Last Admin: 08/13/18 11:56 Dose: 30 ml Piperacillin Sod/Tazobactam (Sod 3.375 gm/ Sodium Chloride) 50 mls @ 100 mls/ hr IV Q6H [facility] Last Admin: 08/15/18 12:33 Dose: 100 mls/hr Lactated Ringer's (Ringers, Lactated) 1,000 mls @ 50 mls/hr IV ASDIRECTED [facility] Last Admin: 08/14/18 17:58 Dose: 50 mls/hr Ketorolac Tromethamine (Toradol) 30 mg IVPUSH Q6H [facility] Stop: 08/20/18 12:34 Morphine Sulfate (Morphine) 2 mg IVPUSH Q1H PRN PRN Reason: Pain (severe 7-10) Non-Formulary Medication (Albuterol/Ipratropium [Combivent Respimat]) 1 inh INH QID PRN PRN Reason: Dyspnea Non-Formulary Medication (Fluticasone/Salmeterol [Advair 250-50 Diskus]) 2 inh INH BID [facility] Nortriptyline HCl (Nortriptyline) 25 mg PO BEDTIME [facility] Pantoprazole Sodium (Protonix) 40 mg PO 1999 [facility] Tiotropium [place] (Spiriva Handihaler) 18 mcg INH DAILY [facility] Last Admin: 08/15/18 09:17 Dose: 1 puff Discontinued Medications Albuterol/Ipratropium (Duoneb 3.0-0.5 Mg/3 Ml) 3 ml NEB ONETIME ONE Stop: 08/13/18 15:03 Last Admin: 08/13/18 15:15 Dose: 3 ml Ciprofloxacin/Dextrose 400 mg/ (Premix) 200 mls @ 200 mls/hr IV ONETIME ONE Stop: 08/13/18 10:58 Last Admin: 08/13/18 12:33 Dose: 200 mls/hr Metronidazole 500 mg/ Premix 100 mls @ 100 mls/hr IV ONETIME ONE Stop: 08/13/18 10:58 Last Admin: 08/13/18 11:36 Dose: 100 mls/hr Ciprofloxacin/Dextrose 400 mg/ (Premix) 200 mls @ 200 mls/hr IV ONETIME ONE Stop: 08/13/18 11:48 Last Admin: 08/13/18 10:52 Dose: Not Given Sodium Chloride (Normal Saline) 1,000 mls @ 999 mls/hr IV .BOLUS ONE Stop: 08/13/18 15:04 Last Admin: 08/13/18 14:20 Dose: 999 mls/hr Lactated Ringer's (Ringers, Lactated) 1,000 mls @ 125 mls/hr IV ASDIRECTED [facility] Last Admin: 08/14/18 02:36 Dose: 125 mls/hr Piperacillin Sod/Tazobactam (Sod 3.375 gm/ Sodium Chloride) 50 mls @ 100 mls/ hr IV ONETIME ONE Stop: 08/13/18 18:29 Last Admin: 08/13/18 18:14 Dose: 100 mls/hr Iopamidol (Isovue-370 (76%)) 67 ml IV ONETIME ONE Stop: 08/13/18 10:35 Last Admin: 08/13/18 11:56 Dose: 67 ml Ketorolac Tromethamine (Toradol) 15 mg IVPUSH .STK-MED ONE Stop: 08/13/18 09:16 Pantoprazole Sodium (Protonix) 40 mg PO ONETIME ONE Stop: 08/14/18 21:31 Last Admin: 08/14/18 21:36 Dose: 40 mg - Exam Wound/Incisions: Healing Well General: Alert, Oriented Lungs: Clear to Auscultation, Normal Respiratory Effort GI/Abdominal Exam: Soft, Tender (mild). No: Distended - Problem List Review Problem List Initiated/Reviewed/Updated: Yes - My Orders Last 24 Hours: Active Orders 24 hr Category Date Time Status Regular Diet [DIET] Diet 08/15/18 Breakfast Active Acetaminophen [Tylenol Extra Strength] Med 08/15/18 09:00 Ordered 1,500 mg PO BID Albuterol/Ipratropium [Combivent Respimat] Med 08/15/18 08:20 Ordered 1 inh INH QID PRN Calcium Carbonate/Vitamin D3 [Calcium Carbonate/Vitamin Med 08/15/18 12:45 Active D 1250 MG-200 Unit] 1 tab PO BID Carboxymethylcellulose Sodium [Refresh Tears 0.5%] Med 08/15/18 12:45 Active 0 ml EYEBOTH QID PRN Celecoxib [CeleBREX] Med 08/15/18 09:00 Active 200 mg PO BID Fluticasone/Salmeterol [Advair 250-50 Diskus] Med 08/15/18 09:00 Ordered 2 inh INH BID Ketorolac [Toradol] Med 08/15/18 12:45 Ordered 30 mg IVPUSH Q6H Nortriptyline Med 08/15/18 21:00 Active 25 mg PO BEDTIME Pantoprazole [ProTONIX] Med 08/15/18 20:00 Active 40 mg PO 2000 Tiotropium [Spiriva HandiHaler] Med 08/15/18 09:00 Active 18 mcg INH DAILY atorvaSTATin [Lipitor] Med 08/15/18 21:00 Active 20 mg PO BEDTIME cycloSPORINE [Restasis] Med 08/15/18 12:00 Active 1 each EYEBOTH BID Medication Orders Acetaminophen (Tylenol Extra Strength) 1,500 mg PO BID [facility] Hydrocodone Bitart/Acetaminophen ([place] 325-5 Mg) 1 tab PO Q4H PRN PRN Reason: Pain (mild 1-3) Last Admin: 08/15/18 10:43 Dose: 1 tab Admin: 08/14/18 18:14 Dose: 1 tab Admin: 08/14/18 08:44 Dose: 1 tab Artificial Tears (Refresh Tears 0.5%) 0 ml EYEBOTH QID PRN PRN Reason: DRY EYES Atorvastatin Calcium (Lipitor) 20 mg PO BEDTIME [facility] Calcium Carbonate (Calcium Carbonate/Vitamin D 1250 Mg-200 Unit) 1 tab PO BID [facility] Celecoxib (Celebrex) 200 mg PO BID [facility] Last Admin: 08/15/18 09:17 Dose: 200 mg Cyclosporine (Restasis) 1 each EYEBOTH BID [facility] Diatrizoate Meglum/Diatrizoate Sod (Gastrografin 37%) 30 ml PO . DIRECTED [facility] Last Admin: 08/13/18 11:56 Dose: 30 ml Piperacillin Sod/Tazobactam (Sod 3.375 gm/ Sodium Chloride) 50 mls @ 100 mls/ hr IV Q6H [facility] Last Admin: 08/15/18 12:33 Dose: 100 mls/hr Admin: 08/15/18 06:07 Dose: 100 mls/hr Admin: 08/15/18 00:00 Dose: 100 mls/hr Admin: 08/14/18 18:11 Dose: 100 mls/hr Admin: 08/14/18 12:25 Dose: 100 mls/hr Admin: 08/14/18 05:34 Dose: Not Given Admin: 08/14/18 05:26 Dose: 100 mls/hr Admin: 08/14/18 01:30 Dose: Not Given Admin: 08/13/18 23:38 Dose: 100 mls/hr Lactated Ringer's (Ringers, Lactated) 1,000 mls @ 50 mls/hr IV ASDIRECTED [facility] Last Admin: 08/14/18 17:58 Dose: 50 mls/hr Ketorolac Tromethamine (Toradol) 30 mg IVPUSH Q6H [facility] Stop: 08/20/18 12:34 Morphine Sulfate (Morphine) 2 mg IVPUSH Q1H PRN PRN Reason: Pain (severe 7-10) Non-Formulary Medication (Albuterol/Ipratropium [Combivent Respimat]) 1 inh INH QID PRN PRN Reason: Dyspnea Non-Formulary Medication (Fluticasone/Salmeterol [Advair 250-50 Diskus]) 2 inh INH BID [facility] Nortriptyline HCl (Nortriptyline) 25 mg PO BEDTIME [facility] Pantoprazole Sodium (Protonix) 40 mg PO 2000 [facility] Tiotropium [place] (Spiriva Handihaler) 18 mcg INH DAILY [facility] Last Admin: 08/15/18 09:17 Dose: 1 puff - Assessment Assessment (Free Text/Narrative):: Doing well Culture shows E coli - Plan Plan (Free Text/Narrative):: Cont as is, adv diet Add Toradol for pain
[2018-08-15] MEDS ORDERED: Carboxymethylcellulose Sodium 0.5% Ophth Soln 15 ML Bottle EYEBOTH PRN (12:45)
[2018-08-15] MEDS: Formoterol/Mometasone 200-5 MCG 8.8 GM Inhaler IH SCH ×2 (13:28→21:03)
[2018-08-15] MEDS: cycloSPORINE Ophth Drops U/D Box of 30 EYEBOTH SCH ×2 (13:29→21:05)
[2018-08-15] MEDS: Ketorolac 30 MG/ML SDV IVPUSH SCH ×2 (13:29→19:27)
[2018-08-15] MEDS: Calcium Carbonate/Vitamin D3 1250 MG-200 Unit Tab PO SCH ×2 (13:29→21:04)
[2018-08-15] MEDS: Lactated Ringers 1,000 ML IV SCH (19:30)
[2018-08-15] MEDS ORDERED: Pantoprazole 40 MG Tab.CR PO SCH (20:00)
[2018-08-15] MEDS ORDERED: Nortriptyline 25 MG Cap PO SCH (21:00)
[2018-08-15] MEDS ORDERED: atorvaSTATin 20 MG Tab PO SCH (21:00)
[2018-08-16] MEDS: Piperacillin/Tazobactam 3.375 GM in Sodium Chloride 0.9% 50 ML IV SCH ×3 (00:09→11:50)
[2018-08-16] MEDS: Ketorolac 30 MG/ML SDV IVPUSH SCH ×3 (01:12→12:39)
[2018-08-16] MEDS: Calcium Carbonate/Vitamin D3 1250 MG-200 Unit Tab PO SCH (08:59)
[2018-08-16] MEDS: Formoterol/Mometasone 200-5 MCG 8.8 GM Inhaler IH SCH (08:59)
[2018-08-16] MEDS: cycloSPORINE Ophth Drops U/D Box of 30 EYEBOTH SCH (09:01)
[2018-08-16] MEDS: Tiotropium Inhaler 18 MCG Inhalation Powder Cap Kit of 5 INH SCH (09:02)
--- NOTE | 2018-08-16 11:35 | PCM.DCSUM1 ---
Discharge Summary - Hospital Course Free Text/Narrative:: Patient underwent Lap Appy for freforated appendicitis. Post op did well. Kept on IV Zosyn. Has been afebrile and WBC is normal. Is tolerating po well Diagnosis: Stroke: No - Discharge Data Discharge Date: 08/16/18 Discharge Disposition: Home, Self-Care 01 Condition: Stable - Patient Summary/Data Operative Procedure(s) Performed: Lap Appy Complications: none Recommended Follow-up Testing/Procedures: f/u with Dr Dulce Lobo 08/22/18 - Patient Instructions Diet: Usual Diet as Tolerated Activity: No Lifting Over 20 Pounds (for 2 weeks) Showering/Bathing: May Shower Wound/Incision Care: Keep Operative Site/Wound Site Clean and Dry - Discharge Plan *PRESCRIPTION DRUG MONITORING PROGRAM REVIEWED*: Not Applicable *COPY OF PRESCRIPTION DRUG MONITORING REPORT IN PATIENT [place]: Not Applicable Home Medications: Home Meds Albuterol/Ipratropium [Combivent Respimat] 1 inh INH QID PRN 08/13/18 [History] Aspirin 81 mg PO DAILY 08/13/18 [History] Calcium Carb & Citrate/Vit D3 [Calcium + D3 ER Tablet] 1 tab PO BID 08/13/18 [ History] Carboxymethylcellulose Sodium [Refresh Celluvisc] 1 dose EYEBOTH QID PRN [History] Celecoxib [CeleBREX] 200 mg PO BID 08/13/18 [History] Fluticasone/Salmeterol [Advair 250-50 Diskus] 1 inh INH BID 08/13/18 [History] [place]-3/DHA/Epa/Fish Oil [[place] 3 500 Softgel] 1 cap PO BID 08/13/18 [History] Tiotropium [Spiriva HandiHaler] 18 mcg INH DAILY 08/13/18 [History] Vit A/Vit C/Vit E/Zinc/Copper [Preservision] 1 tab PO BID 08/13/18 [History] cycloSPORINE [Restasis] 1 each EYEBOTH BID 08/13/18 [History] Acetaminophen [Tylenol Arthritis] 1,950 mg PO BID 08/15/18 [History] Bimatoprost [Lumigan 0.01% Ophth Soln] 1 drop EYEBOTH BEDTIME 08/15/18 [History] Estrogens, Conjugated [Premarin] 0.625 mg PO DAILY 08/15/18 [History] Hypromellose [Genteal Mild] 1 drop EYEBOTH BEDTIME 08/15/18 [History] Nortriptyline 25 mg PO BEDTIME 08/15/18 [History] RABEprazole Sodium [Aciphex] 20 mg PO BID 08/15/18 [History] Valsartan 80 mg PO DAILY 08/15/18 [History] atorvaSTATin Calcium [Lipitor] 20 mg PO BEDTIME 08/15/18 [History] diphenhydrAMINE [Benadryl] 25 mg PO BID 08/15/18 [History] Forms: ED Department Discharge Referrals: Kira Cuevas [employer] [Primary Care Provider] - - Discharge Summary/Plan Comment DC Time >30 min.: No - Patient Data Vitals - Most Recent: Last Vital Signs Temp 97.5 F 08/16/18 09:10 Pulse 96 08/16/18 09:10 Resp 18 08/16/18 09:10 BP 117/76 08/16/18 09:10 Pulse Ox 95 08/16/18 09:10 Weight - Most Recent: 59.874 kg I&O - Last 24 hours: Intake & Output 08/15/18 08/16/18 08/16/18 22:59 06:59 14:59 Intake Total 461 400 Balance 461 400 [facility] Results - Last 24 hrs: Microbiology 08/13/18 10:05 Urine Culture - Final Urine, Clean Catch Escherichia Coli 08/13/18 16:15 Gram Stain - Final Appendix Routine Culture - Preliminary Med Orders - Current: Current Medications Hydrocodone Bitart/Acetaminophen ([place] 325-5 Mg) 1 tab PO Q4H PRN PRN Reason: Pain (mild 1-3) Last Admin: 08/15/18 10:43 Dose: 1 tab Albuterol/Ipratropium (Duoneb 3.0-0.5 Mg/3 Ml) 3 ml INH QID PRN PRN Reason: DYSPNEA Artificial Tears (Refresh Tears 0.5%) 0 ml EYEBOTH QID PRN PRN Reason: DRY EYES Atorvastatin Calcium (Lipitor) 20 mg PO BEDTIME [facility] Calcium Carbonate (Calcium Carbonate/Vitamin D 1250 Mg-200 Unit) 1 tab PO BID [facility] Last Admin: 08/16/18 08:59 Dose: 1 tab Cyclosporine (Restasis) 1 each EYEBOTH BID [facility] Last Admin: 08/16/18 09:01 Dose: 1 drop Diatrizoate Meglum/Diatrizoate Sod (Gastrografin 37%) 30 ml PO . DIRECTED [facility] Last Admin: 08/13/18 11:56 Dose: 30 ml Piperacillin Sod/Tazobactam (Sod 3.375 gm/ Sodium Chloride) 50 mls @ 100 mls/ hr IV Q6H [facility] Last Admin: 08/16/18 08:06 Dose: 100 mls/hr Lactated Ringer's (Ringers, Lactated) 1,000 mls @ 50 mls/hr IV ASDIRECTED [facility] Last Admin: 08/15/18 19:30 Dose: 50 mls/hr Ketorolac Tromethamine (Toradol) 30 mg IVPUSH Q6H [facility] Stop: 08/20/18 12:34 Last Admin: 08/16/18 06:48 Dose: 30 mg Mometasone Furoate/Formoterol Fumar (Dulera 200-5 Mcg) 2 puff IH BID [facility] Last Admin: 08/16/18 08:59 Dose: 2 puff Morphine Sulfate (Morphine) 2 mg IVPUSH Q1H PRN PRN Reason: Pain (severe 7-10) Nortriptyline HCl (Nortriptyline) 25 mg PO BEDTIME [facility] Last Admin: 08/15/18 21:05 Dose: 25 mg Pantoprazole Sodium (Protonix) 40 mg PO 1999 [facility] Last Admin: 08/15/18 19:28 Dose: 40 mg Tiotropium [place] (Spiriva Handihaler) 18 mcg INH DAILY [facility] Last Admin: 08/16/18 09:02 Dose: 1 puff Discontinued Medications Albuterol/Ipratropium (Duoneb 3.0-0.5 Mg/3 Ml) 3 ml NEB ONETIME ONE Stop: 08/13/18 15:03 Last Admin: 08/13/18 15:15 Dose: 3 ml Celecoxib (Celebrex) 200 mg PO BID [facility] Last Admin: 08/15/18 09:17 Dose: 200 mg Ciprofloxacin/Dextrose 400 mg/ (Premix) 200 mls @ 200 mls/hr IV ONETIME ONE Stop: 08/13/18 10:58 Last Admin: 08/13/18 12:33 Dose: 200 mls/hr Metronidazole 500 mg/ Premix 100 mls @ 100 mls/hr IV ONETIME ONE Stop: 08/13/18 10:58 Last Admin: 08/13/18 11:36 Dose: 100 mls/hr Ciprofloxacin/Dextrose 400 mg/ (Premix) 200 mls @ 200 mls/hr IV ONETIME ONE Stop: 08/13/18 11:48 Last Admin: 08/13/18 10:52 Dose: Not Given Sodium Chloride (Normal Saline) 1,000 mls @ 999 mls/hr IV .BOLUS ONE Stop: 08/13/18 15:04 Last Admin: 08/13/18 14:20 Dose: 999 mls/hr Lactated Ringer's (Ringers, Lactated) 1,000 mls @ 125 mls/hr IV ASDIRECTED [facility] Last Admin: 08/14/18 02:36 Dose: 125 mls/hr Piperacillin Sod/Tazobactam (Sod 3.375 gm/ Sodium Chloride) 50 mls @ 100 mls/ hr IV ONETIME ONE Stop: 08/13/18 18:29 Last Admin: 08/13/18 18:14 Dose: 100 mls/hr Iopamidol (Isovue-370 (76%)) 67 ml IV ONETIME ONE Stop: 08/13/18 10:35 Last Admin: 08/13/18 11:56 Dose: 67 ml Ketorolac Tromethamine (Toradol) 15 mg IVPUSH .STK-MED ONE Stop: 08/13/18 09:16 Pantoprazole Sodium (Protonix) 40 mg PO ONETIME ONE Stop: 08/14/18 21:31 Last Admin: 08/14/18 21:36 Dose: 40 mg
--- NOTE | 2018-08-16 11:36 | PCM.SURGPN ---
- General Info Date of Service: 08/16/18 POD#: 3 Functional Status: Reports: Pain Controlled, Tolerating Diet, Ambulating - Review of Systems General: Reports: No Symptoms Pulmonary: Reports: No Symptoms Gastrointestinal: Reports: No Symptoms - Patient Data Vitals - Most Recent: Last Vital Signs Temp 97.5 F 08/16/18 09:10 Pulse 96 08/16/18 09:10 Resp 18 08/16/18 09:10 BP 117/76 08/16/18 09:10 Pulse Ox 95 08/16/18 09:10 Weight - Most Recent: 59.874 kg I&O - Last 24 Hours: Intake & Output 08/15/18 08/16/18 08/16/18 22:59 06:59 14:59 Intake Total 461 400 Balance 461 400 Alexi Results Last 24 Hrs: Microbiology 08/13/18 10:05 Urine Culture - Final Urine, Clean Catch Escherichia Coli 08/13/18 16:15 Gram Stain - Final Appendix Routine Culture - Preliminary Med Orders - Current: Current Medications Hydrocodone Bitart/Acetaminophen ([place] 325-5 Mg) 1 tab PO Q4H PRN PRN Reason: Pain (mild 1-3) Last Admin: 08/15/18 10:43 Dose: 1 tab Albuterol/Ipratropium (Duoneb 3.0-0.5 Mg/3 Ml) 3 ml INH QID PRN PRN Reason: DYSPNEA Artificial Tears (Refresh Tears 0.5%) 0 ml EYEBOTH QID PRN PRN Reason: DRY EYES Atorvastatin Calcium (Lipitor) 20 mg PO BEDTIME [facility] Calcium Carbonate (Calcium Carbonate/Vitamin D 1250 Mg-200 Unit) 1 tab PO BID [facility] Last Admin: 08/16/18 08:59 Dose: 1 tab Cyclosporine (Restasis) 1 each EYEBOTH BID [facility] Last Admin: 08/16/18 09:01 Dose: 1 drop Diatrizoate Meglum/Diatrizoate Sod (Gastrografin 37%) 30 ml PO . DIRECTED [facility] Last Admin: 08/13/18 11:56 Dose: 30 ml Piperacillin Sod/Tazobactam (Sod 3.375 gm/ Sodium Chloride) 50 mls @ 100 mls/ hr IV Q6H [facility] Last Admin: 08/16/18 08:06 Dose: 100 mls/hr Lactated Ringer's (Ringers, Lactated) 1,000 mls @ 50 mls/hr IV ASDIRECTED [facility] Last Admin: 08/15/18 19:30 Dose: 50 mls/hr Ketorolac Tromethamine (Toradol) 30 mg IVPUSH Q6H [facility] Stop: 08/20/18 12:34 Last Admin: 08/16/18 06:48 Dose: 30 mg Mometasone Furoate/Formoterol Fumar (Dulera 200-5 Mcg) 2 puff IH BID [facility] Last Admin: 08/16/18 08:59 Dose: 2 puff Morphine Sulfate (Morphine) 2 mg IVPUSH Q1H PRN PRN Reason: Pain (severe 7-10) Nortriptyline HCl (Nortriptyline) 25 mg PO BEDTIME [facility] Last Admin: 08/15/18 21:05 Dose: 25 mg Pantoprazole Sodium (Protonix) 40 mg PO 1999 [facility] Last Admin: 08/15/18 19:28 Dose: 40 mg Tiotropium Murdock (Spiriva Handihaler) 18 mcg INH DAILY [facility] Last Admin: 08/16/18 09:02 Dose: 1 puff Discontinued Medications Albuterol/Ipratropium (Duoneb 3.0-0.5 Mg/3 Ml) 3 ml NEB ONETIME ONE Stop: 08/13/18 15:03 Last Admin: 08/13/18 15:15 Dose: 3 ml Celecoxib (Celebrex) 200 mg PO BID [facility] Last Admin: 08/15/18 09:17 Dose: 200 mg Ciprofloxacin/Dextrose 400 mg/ (Premix) 200 mls @ 200 mls/hr IV ONETIME ONE Stop: 08/13/18 10:58 Last Admin: 08/13/18 12:33 Dose: 200 mls/hr Metronidazole 500 mg/ Premix 100 mls @ 100 mls/hr IV ONETIME ONE Stop: 08/13/18 10:58 Last Admin: 08/13/18 11:36 Dose: 100 mls/hr Ciprofloxacin/Dextrose 400 mg/ (Premix) 200 mls @ 200 mls/hr IV ONETIME ONE Stop: 08/13/18 11:48 Last Admin: 08/13/18 10:52 Dose: Not Given Sodium Chloride (Normal Saline) 1,000 mls @ 999 mls/hr IV .BOLUS ONE Stop: 08/13/18 15:04 Last Admin: 08/13/18 14:20 Dose: 999 mls/hr Lactated Ringer's (Ringers, Lactated) 1,000 mls @ 125 mls/hr IV ASDIRECTED [facility] Last Admin: 08/14/18 02:36 Dose: 125 mls/hr Piperacillin Sod/Tazobactam (Sod 3.375 gm/ Sodium Chloride) 50 mls @ 100 mls/ hr IV ONETIME ONE Stop: 08/13/18 18:29 Last Admin: 08/13/18 18:14 Dose: 100 mls/hr Iopamidol (Isovue-370 (76%)) 67 ml IV ONETIME ONE Stop: 08/13/18 10:35 Last Admin: 08/13/18 11:56 Dose: 67 ml Ketorolac Tromethamine (Toradol) 15 mg IVPUSH .STK-MED ONE Stop: 08/13/18 09:16 Pantoprazole Sodium (Protonix) 40 mg PO ONETIME ONE Stop: 08/14/18 21:31 Last Admin: 08/14/18 21:36 Dose: 40 mg - Exam Wound/Incisions: Healing Well, Dressing Dry and Intact GI/Abdominal Exam: Soft, Non-Tender, No Distention - Problem List Review Problem List Initiated/Reviewed/Updated: Yes - My Orders Last 24 Hours: Active Orders 24 hr Category Date Time Status Albuterol/Ipratropium [DuoNeb 3.0-0.5 MG/3 ML] Med 08/15/18 12:00 Active 3 ml INH QID PRN Calcium Carbonate/Vitamin D3 [Calcium Carbonate/Vitamin Med 08/15/18 12:45 Active D 1250 MG-200 Unit] 1 tab PO BID Carboxymethylcellulose Sodium [Refresh Tears 0.5%] Med 08/15/18 12:45 Active 0 ml EYEBOTH QID PRN Ketorolac [Toradol] Med 08/15/18 12:45 Active 30 mg IVPUSH Q6H Mometasone/Formoterol [Dulera 200-5 MCG] Med 08/15/18 12:45 Active 2 puff IH BID Nortriptyline Med 08/15/18 21:00 Active 25 mg PO BEDTIME Pantoprazole [ProTONIX] Med 08/15/18 20:00 Active 40 mg PO 2000 atorvaSTATin [Lipitor] Med 08/15/18 21:00 Hold 20 mg PO BEDTIME cycloSPORINE [Restasis] Med 08/15/18 12:00 Active 1 each EYEBOTH BID Medication Orders Hydrocodone Bitart/Acetaminophen ([place] 325-5 Mg) 1 tab PO Q4H PRN PRN Reason: Pain (mild 1-3) Last Admin: 08/15/18 10:43 Dose: 1 tab Admin: 08/14/18 18:14 Dose: 1 tab Admin: 08/14/18 08:44 Dose: 1 tab Albuterol/Ipratropium (Duoneb 3.0-0.5 Mg/3 Ml) 3 ml INH QID PRN PRN Reason: DYSPNEA Artificial Tears (Refresh Tears 0.5%) 0 ml EYEBOTH QID PRN PRN Reason: DRY EYES Atorvastatin Calcium (Lipitor) 20 mg PO BEDTIME [facility] Calcium Carbonate (Calcium Carbonate/Vitamin D 1250 Mg-200 Unit) 1 tab PO BID [facility] Last Admin: 08/16/18 08:59 Dose: 1 tab Admin: 08/15/18 21:04 Dose: 1 tab Admin: 08/15/18 13:29 Dose: 1 tab Cyclosporine (Restasis) 1 each EYEBOTH BID [facility] Last Admin: 08/16/18 09:01 Dose: 1 drop Admin: 08/15/18 21:05 Dose: 1 drop Admin: 08/15/18 13:29 Dose: 1 drop Diatrizoate Meglum/Diatrizoate Sod (Gastrografin 37%) 30 ml PO . DIRECTED [facility] Last Admin: 08/13/18 11:56 Dose: 30 ml Piperacillin Sod/Tazobactam (Sod 3.375 gm/ Sodium Chloride) 50 mls @ 100 mls/ hr IV Q6H [facility] Last Admin: 08/16/18 08:06 Dose: 100 mls/hr Admin: 08/16/18 00:09 Dose: 100 mls/hr Admin: 08/15/18 18:50 Dose: 100 mls/hr Admin: 08/15/18 12:33 Dose: 100 mls/hr Admin: 08/15/18 06:07 Dose: 100 mls/hr Admin: 08/15/18 00:00 Dose: 100 mls/hr Admin: 08/14/18 18:11 Dose: 100 mls/hr Admin: 08/14/18 12:25 Dose: 100 mls/hr Admin: 08/14/18 05:34 Dose: Not Given Admin: 08/14/18 05:26 Dose: 100 mls/hr Admin: 08/14/18 01:30 Dose: Not Given Admin: 08/13/18 23:38 Dose: 100 mls/hr Lactated Ringer's (Ringers, Lactated) 1,000 mls @ 50 mls/hr IV ASDIRECTED [facility] Last Admin: 08/15/18 19:30 Dose: 50 mls/hr Infusion: 08/15/18 13:58 Dose: 50 mls/hr Admin: 08/14/18 17:58 Dose: 50 mls/hr Ketorolac Tromethamine (Toradol) 30 mg IVPUSH Q6H [facility] Stop: 08/20/18 12:34 Last Admin: 08/16/18 06:48 Dose: 30 mg Admin: 08/16/18 01:12 Dose: 30 mg Admin: 08/15/18 19:27 Dose: 30 mg Admin: 08/15/18 13:29 Dose: 30 mg Mometasone Furoate/Formoterol Fumar (Dulera 200-5 Mcg) 2 puff IH BID [facility] Last Admin: 08/16/18 08:59 Dose: 2 puff Admin: 08/15/18 21:03 Dose: 2 puff Admin: 08/15/18 13:28 Dose: 2 puff Morphine Sulfate (Morphine) 2 mg IVPUSH Q1H PRN PRN Reason: Pain (severe 7-10) Nortriptyline HCl (Nortriptyline) 25 mg PO BEDTIME [facility] Last Admin: 08/15/18 21:05 Dose: 25 mg Pantoprazole Sodium (Protonix) 40 mg PO 2000 [facility] Last Admin: 08/15/18 19:28 Dose: 40 mg Tiotropium Murdock (Spiriva Handihaler) 18 mcg INH DAILY [facility] Last Admin: 08/16/18 09:02 Dose: 1 puff Admin: 08/15/18 09:17 Dose: 1 puff - Assessment Assessment (Free Text/Narrative):: Doing well - Plan Plan (Free Text/Narrative):: Discharge to home
== END 2018-08-16 14:44 | disposition home or self-care (01) | DRG 340 ==
LOC: FB.ED 07:45 → FB.SDS 14:51 → FB.MS 17:04 → OBSVTOIN 08-14 10:21
PROVIDERS: ADMIT Surgery; ATTEND Surgery
PROC: 0DTJ4ZZ Resection of Appendix, Percutaneous Endoscopic Approach (ICD-10-PCS; principal; 2018-08-13)
DX: K35.32 Acute appendicitis with perforation, localized peritonitis, and gangrene, without abscess (principal); I10 Essential (primary) hypertension; J44.9 Chronic obstructive pulmonary disease, unspecified; R10.30 Lower abdominal pain, unspecified; E78.00 Pure hypercholesterolemia, unspecified; Z79.82 Long term (current) use of aspirin; Z88.1 Allergy status to other antibiotic agents; Z90.710 Acquired absence of both cervix and uterus
CPT/HCPCS: 36415; 44970; 74019; 74177; 80053; 81001; 85025; 86140; 87070; 87075; 87086; 87205; 96361; 96365; 96367; 96375; 99285; A9270; J0744; J1885; J2543 ×3; J3490; J7030; J7050 ×3; J7120 ×2; Q9963; Q9967; 85027; 87088; 87186; C9399; J0330; J1100; J1200; J2250; J2405; J2704; J2710; J3010; J7620-GY